=== PATIENT | female | born 1975 | race Two or more races ===

== ENCOUNTER 2024-07-03 17:09 | Emergency (ER) | payer OTHER ==
[~2024-07-03] VITALS: Ht 149.9 cm; Wt 56.7 kg
[2024-07-03] MEDS ORDERED: METOCLOPRAMIDE HCL 10 MG/2 ML VIAL ONE (17:36)
[2024-07-03] MEDS ORDERED: diphenhydrAMINE HCL 50 MG/ML VIAL ONE (17:36)
[2024-07-03] MEDS ORDERED: ACETAMINOPHEN ES 500 MG TABLET ONE (17:36)
[2024-07-03] MEDS: METOCLOPRAMIDE HCL 10 MG/2 ML VIAL IV ONE (17:43)
[2024-07-03] MEDS: ACETAMINOPHEN ES 500 MG TABLET PO ONE (17:43)
[2024-07-03] MEDS: diphenhydrAMINE HCL 50 MG/ML VIAL IV ONE (17:43)
[2024-07-03] MEDS: IV NS 0.9% 1,000 ML BAG IV ONE (17:43)
[2024-07-03 17:44] LABS: BASOPHILS % (AUTO) 0.6 % (0.0-2.0); EOSINOPHILS # (AUTO) 0.1 K/uL (0.0-0.7); EOSINOPHILS % (AUTO) 1.1 % (0.0-6.0); HEMATOCRIT 30 % (33-45); HEMOGLOBIN 9.5 g/dL (11.5-14.8); LYMPHOCYTES # (AUTO) 1.5 K/uL (0.8-4.8); LYMPHOCYTES % (AUTO) 18.2 % (20.0-44.0); MEAN CORPUSCULAR HEMOGLOBIN 26 PG (26.0-33.0); MEAN CORPUSCULAR HGB CONC 31 g/dl (31.0-36.0); MEAN CORPUSCULAR VOLUME 81 fL (82-100); MONOCYTES # (AUTO) 0.6 K/uL (0.1-1.30); MONOCYTES % (AUTO) 6.9 % (2.0-12.0); NEUTROPHILS # (AUTO) 5.9 K/uL (1.8-8.9); NEUTROPHILS % (AUTO) 73.2 % (43.0-81.0); PLATELET COUNT (AUTO) 281 K/uL (150-450); RED BLOOD CELL COUNT(AUTO) 3.74 MIL/uL (4.0-5.2); RED CELL DISTRIBUTION WIDTH 17.5 % (11.5-15.0)
[2024-07-03 17:50] LABS: CALCIUM, SERUM 8.4 mg/dL (8.5-10.1); CARBON DIOXIDE 28 mmol/L (21-32); CHLORIDE 105 mmol/L (98-107); CREATININE 0.5 mg/dL (0.6-1.3); GLUCOSE 96 mg/dL (74-106); POTASSIUM 3.5 mmol/L (3.5-5.1); SODIUM SERUM 140 mmol/L (136-145); UREA NITROGEN, BLOOD 7 mg/dL (7-18)
[2024-07-03 17:58] LABS: ALANINE AMINOTRANSFERASE 18 U/L (12-78); ALBUMIN 3.5 g/dL (3.4-5.0); ALKALINE PHOSPHATASE 70 U/L (46-116); ASPARTATE AMINOTRANSFERASE 11 U/L (15-37); BILIRUBIN,TOTAL 0.3 mg/dL (0.2-1.0); LIPASE 39 U/L (16-77); TOTAL PROTEIN, SERUM 7.1 g/dL (6.4-8.2)
[2024-07-03 18:11] LABS: BILIRUBIN,DIRECT 0.1 mg/dL (0.0-0.2)
[2024-07-03] MEDS ORDERED: METO-295 PO (19:34)
[2024-07-03 20:03] VITALS: BP 118/80; TEMP 98; O2SAT 98
== END 2024-07-03 20:03 | disposition home or self-care (01) ==
LOC: ER 17:22
DX: R51.9 Headache, unspecified (principal)
CPT/HCPCS: 99284; 96374; 96361; 96375; 93005; 85025; 80048; 83690; 80076; 36415; 84484; J1200; J2765; J7030

== ENCOUNTER 2024-09-27 18:37 | Emergency (ER) | payer OTHER ==
[~2024-09-27] VITALS: Ht 162.6 cm; Wt 68.0 kg
[~2024-09-27 18:37] MED LIST: METO-295 PO
[2024-09-27] MEDS ORDERED: diphenhydrAMINE HCL 50 MG/ML VIAL ONE (21:04)
[2024-09-27] MEDS ORDERED: METOCLOPRAMIDE HCL 10 MG/2 ML VIAL ONE (21:04)
[2024-09-27] MEDS ORDERED: ACETAMINOPHEN ES 500 MG TABLET ONE (21:05)
[2024-09-27] MEDS: diphenhydrAMINE HCL 50 MG/ML VIAL IV ONE (21:14)
[2024-09-27] MEDS: METOCLOPRAMIDE HCL 10 MG/2 ML VIAL IV ONE (21:14)
[2024-09-27] MEDS: ACETAMINOPHEN ES 500 MG TABLET PO ONE (21:14)
[2024-09-27] MEDS: IV NS 0.9% 1,000 ML BAG IV ONE (21:14)
[2024-09-27 22:39] VITALS: BP 111/80; TEMP 98.2; O2SAT 98
== END 2024-09-27 22:41 | disposition home or self-care (01) ==
LOC: ER 18:40
DX: G43.909 Migraine, unspecified, not intractable, without status migrainosus (principal); Z60.2 Problems related to living alone
CPT/HCPCS: 99284; 96374; 96361; 96375; J1200; J2765; J7030